=== PATIENT | female | born 1985 | race Caucasian/White ===

== ENCOUNTER 2017-02-26 08:07 | Day surgery (SDC) | payer OTHER ==
[2017-02-26 09:20] LABS: PROTHROMBIN TIME 12.4 SEC (11.4-15.4)
[2017-02-26 09:21] LABS: PARTIAL THROMBOPLASTIN TIME 29.2 SEC (23.5-35.8)
[2017-02-26 11:21] LABS: RBC DILUENT USED NONE USED; RBC DILUTION FACTOR 1; RBC SIDE 1 158; RBC SIDE 2 146; TOTAL RBC SQUARES COUNTED 225
[2017-02-26 11:22] LABS: STAIN REACTIVITY CHECK ACCEPTABLE; WHITE BLOOD CELL,CSF 1 /uL (0-5)
[2017-02-26 11:28] LABS: GLUCOSE,CSF 53 mg/dL (40-70)
--- NOTE | 2017-02-26 13:19 | RADIOLOGY REPORT (SQ) ---
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 FLUOROSCOPY TIME: 18 seconds 2 digital fluoro images saved to PACS. TECHNIQUE: Fluoroscopic guided lumbar puncture. LIMITATIONS: None. PROCEDURE: After written consent and assessment were obtained, the patient was brought into the fluo roscopy room and placed prone on the table. The patient's lower back was prepped in a sterile fashio n and an entry site was selected under live fluoroscopic guidance. The entry site was anesthetized wi th 5 mL of 1% lidocaine. A 15 cm 22 gauge spinal needle was advanced through the skin and into the t hecal sac at the right paracentral L2-3 level. After approximately 8 ml was drained, the needle was removed and a sterile bandage was placed of the site. Specimens were sent to the lab for testing. A fluoroscopic spot image was saved to PACS confirming level access. FINDINGS: Opening pressure, 30 cm of water. After 8 mL of clear fluid was removed and sent for test ing, closing pressure was 18 cm of water. IMPRESSION: Lumbar puncture under fluoroscopy. No immediate complication. COMMENT: Patient medication list reviewed: Yes- Quality ID# [id number]:Eligible professional attests to doc umenting in the medical record they obtained, updated, or reviewed the patient's current medications. . Quality ID 145: Final reports for procedures using fluoroscopy that document radiation exposure moises sintia, or exposure time and number of fluorographic images (if radiation exposure indices are not avail able) TECHNICAL DOCUMENTATION: JOB ID: [id number] [employer]- All Rights Reserved
[2017-02-26 13:23] VITALS: BP 108/62
[2017-02-27 16:39] LABS: ALBUMIN SERUM 3.4 g/dL (3.5-5.5); CSF IGG INDEX 0.6 (0.0-0.7); IGG SYNTHESIS RATE CSF -0.7 mg/day (-9.9 TO +3.3); IGG/ALBUMIN RATIO CSF 0.12 (0.00-0.25); IMMUNOGLOBULIN G CSF 1.3 mg/dL (0.0-8.6)
== END 2017-02-26 13:00 | disposition home or self-care (01) ==
LOC: RAD 08:07
PROVIDERS: ATTEND Specialist
PROC: 009U3ZX Drainage of Spinal Canal, Percutaneous Approach, Diagnostic (ICD-10-PCS; principal; 2017-02-26)
DX: G35 Multiple sclerosis (principal); Z79.899 Other long term (current) drug therapy
CPT/HCPCS: 36415; 62270; 77003; 82784; 82945; 83916; 84157; 85610; 85730; 87070; 87205; 89050